=== PATIENT | male | born 1975 | race Caucasian/White ===

== ENCOUNTER 2024-06-09 | Emergency (ER) | payer OTHER ==
[~2024-06-09] VITALS: Ht 177.8 cm; Wt 108.9 kg
[2024-06-09] MEDS ORDERED: KETOROLAC TROMETHAMINE 30 MG INJ ONE (00:27)
[2024-06-09] MEDS: IV NORMAL SALINE 1000 ML BAG IV ONE (00:29)
[2024-06-09] MEDS: KETOROLAC TROMETHAMINE 30 MG INJ IVP ONE (00:30)
[2024-06-09 00:33] LABS: BASOPHILS # (AUTO) 0.4 K/UL (0.0-0.2); BASOPHILS % (AUTO) 3.7 % (0.0-2.0); EOSINOPHILS % (AUTO) 0.5 % (0.0-7.0); HEMOGLOBIN 14.9 g/dL (12.5-16.3); LYMPHOCYTES # (AUTO) 0.6 K/uL (0.8-4.8); MEAN CORPUSCULAR HEMOGLOBIN 27.7 uug (23.8-33.4); MEAN CORPUSCULAR HGB CONC 32 g/dL (32.5-36.3); MEAN CORPUSCULAR VOLUME 85.5 fL (73.0-96.2); MONOCYTES # (AUTO) 0.3 K/uL (0.1-1.30); MONOCYTES % (AUTO) 2.4 % (0.0-11.0); NEUTROPHILS # (AUTO) 9.2 K/uL (1.8-8.9); NEUTROPHILS % (AUTO) 87.4 % (38.5-71.5); PLATELET COUNT (AUTO) 215 K/uL (152-348); RED BLOOD CELL COUNT(AUTO) 5.38 MIL/uL (4.06-5.63); WHITE BLOOD COUNT (AUTO) 10.5 K/uL (3.6-10.2)
[2024-06-09 00:37] LABS: DIFFERENTIAL COMMENT 1
[2024-06-09 00:44] LABS: *BLOOD, URINE 1+ (NEGATIVE); *CLARITY,URINE CLEAR (CLEAR); *COLOR,URINE YELLOW (YELLOW); *KETONES,URINE 1+ (NEGATIVE); *PROTEIN,URINE 2+ (NEGATIVE); *UROBILINOGEN,URINE 0.2 E.U./dl (NORMAL); LEUKOCYTE ESTERASE ,URINE NEGATIVE (NEGATIVE); NITRITE, URINE NEGATIVE (NEGATIVE); PH,URINE 5.5 (5.0-8.0); UGLUCOSE NEGATIVE (NEGATIVE)
[2024-06-09 00:50] LABS: *BILIRUBIN,URIN 1+ (NEGATIVE)
[2024-06-09 00:51] LABS: CALCIUM 8.9 mg/dL (8.5-10.1); CREATININE 1.3 mg/dL (0.6-1.3); POTASSIUM 3.6 mmol/L (3.5-5.1)
[2024-06-09] MEDS ORDERED: ONDANSETRON 4 MG/2 ML VIAL ONE (01:34)
[2024-06-09] MEDS ORDERED: MORPHINE SULFATE 2 MG/1 ML DISP.SYRIN ONE (01:34)
[2024-06-09] MEDS ORDERED: MORPHINE SULFATE 4 MG/1 ML DISP.SYRIN ONE (01:34)
[2024-06-09] MEDS: ONDANSETRON 4 MG/2 ML VIAL IV ONE (01:40)
[2024-06-09] MEDS: MORPHINE SULFATE 4 MG/1 ML DISP.SYRIN IV ONE (01:40)
[2024-06-09 02:24] LABS: BACTERIA,URINE FEW /HPF (NONE SEEN); SQUAMOUS EPITHELIAL CELL,UR FEW /HPF (NONE SEEN); WBC,URINE NONE SEEN /HPF (0-3)
[2024-06-09 02:25] LABS: MUCUS,URINE FEW /LPF (0-FEW)
[2024-06-09] MEDS ORDERED: TAMS-3 PO (05:58)
[2024-06-09] MEDS ORDERED: HYDR-3980 PO (05:58)
[2024-06-09 06:58] VITALS: BP 150/90; TEMP 98.1; O2SAT 94
== END 2024-06-09 06:50 | disposition home or self-care (01) ==
LOC: ER 00:04
DX: N20.2 Calculus of kidney with calculus of ureter (principal); Z79.891 Long term (current) use of opiate analgesic
CPT/HCPCS: 99285; 74176; 96374; 96375; 96361; 80048; 81001; 85025; 36415; J1885; J2405; J2270 ×2; J7040; A4606; A4663